=== PATIENT | female | born 1965 | race Caucasian/White ===

== ENCOUNTER 2023-01-31 12:39 | Outpatient (OUT) | payer OTHER, SELFPAY ==
--- NOTE | 2023-01-31 12:48 | MM_ITS ---
Patient: JOSE R YANG Exam Date: 01/31/2023 : 1965 Gender:F Ordering : Non-Staff Physician Admission #: [id number] Family : DR Juno Bowden . Order #: [id number] CLICK HERE TO VIEW EXAM RADIOLOGY REPORT PROCEDURE: MM TOMOSYNTHESIS SCREENING BI COMPARISON: MG MAMM SCREEN 3D MAXIME CAD, 01/31/2022. MG MAMM SCREEN 3D MAXIME CAD, 01/13/2021. INDICATIONS: Screening Calculator Name NCI Breast Cancer Risk Assessment Tool 5 Year Breast Cancer Risk 1.50% Lifetime Breast Cancer Risk 8.30% Personal Breast Cancer No Personal Ovarian Cancer No Treatments None Family Cancers None LOCATION: [facility] BREAST COMPOSITION: Heterogeneously dense,which may obscure small masses. FINDINGS: DIAGNOSTIC CATEGORY 1--NEGATIVE. NO CHANGE FROM COMPARISON ASSESSMENT. Scattered benign-appearing lymph nodes are present. RIGHT BREAST: No significant suspicious finding. LEFT BREAST: No significant suspicious finding. RECOMMENDATIONS: ROUTINE MAMMOGRAM AND CLINICAL EVALUATION IN 12 MONTHS. PLEASE NOTE: A NORMAL MAMMOGRAM DOES NOT EXCLUDE THE POSSIBILITY OF BREAST CANCER. A CLINICALLY SUSPICIOUS PALPABLE LUMP SHOULD BE BIOPSIED. Dictated by: Long Goldsmith MD on 01/31/2023 at 14:57 Approved by: Long Goldsmith MD on 01/31/2023 at 14:59
== END 2023-01-31 12:40 | disposition home or self-care (01) ==
LOC: MAMMO 12:43
PROVIDERS: PCP Family Medicine
DX: Z12.31 Encounter for screening mammogram for malignant neoplasm of breast (principal)
CPT/HCPCS: 77063; 77067

== ENCOUNTER 2024-02-05 07:52 | Outpatient (OUT) | payer OTHER, SELFPAY ==
--- NOTE | 2024-02-05 07:56 | MM_ITS ---
Patient Name: JOSE R YANG MR#: [id number] : 1965 Exam Date: 02/05/2024 Ordering Doctor: Non-Staff Physician RADIOLOGY REPORT PROCEDURE: MM TOMOSYNTHESIS SCREENING BI COMPARISON: MG MAMM SCREEN 3D MAXIME CAD, 01/31/2022. MM TOMOSYNTHESIS SCREENING BI, 01/31/2023. INDICATIONS: Screening Calculator Name NCI Breast Cancer Risk Assessment Tool 5 Year Breast Cancer Risk 1.60% Lifetime Breast Cancer Risk 8.10% Personal Breast Cancer No Personal Ovarian Cancer No Treatments None Family Cancers None LOCATION: [facility] BREAST COMPOSITION: The breasts are heterogeneously dense,which may obscure small masses. FINDINGS: DIAGNOSTIC CATEGORY 1--NEGATIVE. NO CHANGE FROM COMPARISON ASSESSMENT. Scattered benign-appearing calcifications are present. Scattered benign-appearing lymph nodes are present. RIGHT BREAST: No significant suspicious finding. Stable focal asymmetry upper outer quadrant likely normal fibroglandular tissue. LEFT BREAST: No significant suspicious finding. RECOMMENDATIONS: ROUTINE MAMMOGRAM AND CLINICAL EVALUATION IN 12 MONTHS. PLEASE NOTE: A NORMAL MAMMOGRAM DOES NOT EXCLUDE THE POSSIBILITY OF BREAST CANCER. A CLINICALLY SUSPICIOUS PALPABLE LUMP SHOULD BE BIOPSIED. Dictated by: Long Goldsmith MD on 02/05/2024 at 10:54 Approved by: Long Goldsmith MD on 02/05/2024 at 10:56
== END 2024-02-05 07:53 | disposition home or self-care (01) ==
LOC: MAMMO 07:52
PROVIDERS: PCP Family Medicine
DX: Z12.31 Encounter for screening mammogram for malignant neoplasm of breast (principal)
CPT/HCPCS: 77063; 77067

== ENCOUNTER 2024-06-05 14:46 | Outpatient (OUT) | payer OTHER, SELFPAY ==
[2024-06-05 15:08] LABS: Basophils Absolute Auto 0.1 10^3/uL (0.0-0.1); Basophils Percent Auto 0.8 % (0.2-2.0); Eosinophils Absolute Auto 0.2 10^3/uL (0.0-0.7); Eosinophils Percent Auto 2.5 % (0.9-7.0); Hematocrit 41.7 % (36.0-48.0); Hemoglobin 13.3 g/dL (12.0-16.0); Immature Granulocytes Abs Auto 0.03 10^3/uL (0.00-0.03); Immature Granulocytes Pct Auto 0.5 % (0.0-0.5); Lymphocytes Absolute Auto 2.3 10^3/uL (1.2-3.8); Mean Corpuscular HGB Conc 31.9 g/dL (29.9-35.2); Mean Corpuscular Hemoglobin 28.7 pg (26.7-34.0); Mean Corpuscular Volume 90.1 fL (81.0-99.0); Mean Platelet Volume 8.7 fL (9.5-13.5); Monocytes Absolute Auto 0.5 10^3/uL (0.3-0.8); Monocytes Percent Auto 8.6 % (1.7-12.0); Neutrophils Absolute Auto 2.9 10^3/uL (1.4-6.5); Neutrophils Percent Auto 49.6 % (43.0-75.0); Platelet Count 225 10^3/uL (150-450); Red Blood Count 4.63 10^6/uL (4.20-5.40); Red Cell Distribution Width 13.2 % (11.0-15.0); White Blood Count 5.9 10^3/uL (4.0-11.0)
[2024-06-05 15:15] LABS: Estimated Average Glucose 123 mg/dL; Glycohemoglobin A1C 5.9 % (4.5-6.2)
[2024-06-05 15:34] LABS: Alanine Aminotransferase 20 U/L (14-59); Albumin Globulin Ratio 1.1; Albumin Level 3.7 g/dL (3.4-5.0); Alkaline Phosphatase 92 U/L (46-116); Anion Gap 10.7; Aspartate Amino Transferase 18 U/L (15-37); Bilirubin Total 0.5 mg/dL (0.2-1.0); Calcium 8.7 mg/dL (8.5-10.1); Carbon Dioxide 31.1 mmol/L (21.0-32.0); Chloride 105 mmol/L (98-107); Chol HDL Ratio 3.6; Cholesterol 254 mg/dL (<=200); Estimated GFR (African America >60 (>=60 mL/min/1.73m^2); Estimated GFR (Non-African Ame >60 (>=60 mL/min/1.73m^2); Free T3 2.89 pg/mL (2.18-3.98); Globulin 3.3 g/dL; Glucose 97 mg/dL (74-106); HDL Cholesterol 71 mg/dL (40-60); Potassium 3.8 mmol/L (3.5-5.1); Sodium 143 mmol/L (136-145); Thyroid Stimulating Hormone 0.842 uIU/mL (0.358-3.740); Triglycerides 150 mg/dL (<=150)
[2024-06-06 10:11] LABS: Insulin 6.4 uIU/mL (2.6-24.9)
== END 2024-06-05 14:47 | disposition home or self-care (01) ==
LOC: LAB 14:47
PROVIDERS: PCP Family Medicine; Visit Provider Family Medicine
DX: Z00.00 Encounter for general adult medical examination without abnormal findings (principal); E78.5 Hyperlipidemia, unspecified; R53.83 Other fatigue; R73.09 Other abnormal glucose; E03.9 Hypothyroidism, unspecified; I10 Essential (primary) hypertension
CPT/HCPCS: 36415; 80053; 80061; 83036; 83525; 84436; 84443; 84481; 85025; 87150

== ENCOUNTER 2025-02-06 09:23 | Outpatient (OUT) | payer OTHER, SELFPAY ==
--- NOTE | 2025-02-06 09:25 | MM_ITS ---
Patient Name: JOSE R YANG MR#: [id number] : 1965 Exam Date: 02/06/2025 Ordering Doctor: DR. MAGUE RODRÍGUEZ M.D. RADIOLOGY REPORT PROCEDURE: MM TOMOSYNTHESIS SCREENING BI COMPARISON: MM TOMOSYNTHESIS SCREENING BI, 02/05/2024. MM TOMOSYNTHESIS SCREENING BI, 01/31/2023. MG MAMM SCREEN 3D MAXIME CAD, 01/31/2022. MG MAMM MAXIME SCRN W CAD DIG, 07/17/2013. INDICATIONS: Screening Calculator Name NCI Breast Cancer Risk Assessment Tool 5 Year Breast Cancer Risk 1.60% Lifetime Breast Cancer Risk 7.90% Personal Breast Cancer No Personal Ovarian Cancer No Treatments None Family Cancers None LOCATION: [facility] BREAST COMPOSITION: The breasts are heterogeneously dense, which may obscure small masses. RIGHT BREAST: No significant suspicious finding. LEFT BREAST: No significant suspicious finding. FINDINGS: DIAGNOSTIC CATEGORY 1--NEGATIVE. RECOMMENDATIONS: ROUTINE MAMMOGRAM AND CLINICAL EVALUATION IN 12 MONTHS. Dictated by: Amadou Bradley MD on 02/06/2025 at 12:45 Approved by: Amadou Bradley MD on 02/06/2025 at 12:47
--- OUTSIDE RECORDS SUMMARY | 2025-02-06 09:25 | XMS_ITS | Clinical Summary ---
Author Organization [facility] Address [address] [place] [address] Care Team Providers Care Central Office Inspector Name Role Phone Juno Bowdne MD Primary Care Provider [phone] Allergies No known active allergies Medications fluorouracil (Efudex) 5 % creamIndication s:Actinic keratosis Apply to directed areas on the chest, twice a day x 14 days. Dispense 30 day supply but only use for 14 days. 40 g 4 Active Additional Information Patient not taking.Reported on 09/23/2024 lisinopril 20 MG tablet 1 (one) time each day at the same time 5 Active Active Problems No known active problems Encounters Date Type Department Care Team Description 02/06/2025 Travel from Last 3 Months Family History Medical History Relation Name Comments Melanoma Brother Relation Name Status Comments Brother Social History Tobacco Use Types Packs/Day Years Used Date Smoking Tobacco: Never Smokeless Tobacco: Never Tobacco Cessation:Counseling Given: Not Answered Comments Unknown Sex and Gender Information Value Date Recorded Sex Assigned at Female 03/16/2023 8:35 AM EDT Legal Sex Female 7:17 PM EDT Gender Identity Female 03/16/2023 8:35 AM EDT Sexual Orientation Not on file Last Filed Vital Signs Vital Sign Reading Time Taken Comments Blood Pressure - - Pulse - - Temperature - - Respiratory Rate - - Oxygen Saturation - - Inhaled Oxygen Concentration - - Weight - - Height 25.4 cm (10 ) 03/09/2022 12:00 PM EDT Body Mass Index - - Plan of Treatment Upcoming Encounters Date Type Department Care Team (Late st Contact Info) Description 02/12/2025 10:00 AM EDT Office Visit [facility] [address] [place] [address] Nadine Gonzalez MD [address] [place] [address] 09/23/2025 8:35 AM EDT Office Visit [facility] [address] [place] [address] Nadine Gonzalez MD [address] [place] [address] Health Maintenance Due Date Last Done Comments CT Colonography 1965 Colonoscopy 1965 Colorectal Cancer Screening 1965 FIT-DNA 1965 FIT 1965 FOBT 1965 Sigmoidoscopy 1965 HPV/Cotest 01/18/1994 Mammogram 01/31/2023 01/31/2022, 11/07/2017 Influenza Vaccine (#1) 2025 , 03/14/2023, 03/11/2022, Additional history exists Cervical Cancer Screening 09/11/2026 Pap Smear 09/11/2026 09/12/2023 Insurance [employer] Care Teams Central Office Inspector Relationship Specialty Start Date End Date Juno Bowden MD PCP - General 09/22/24
--- OUTSIDE RECORDS SUMMARY | 2025-02-06 09:25 | XMS_ITS | Encounter Summary ---
Author Organization [facility] Address [id number] [address] [place] [address] Care Team Providers Care Waterproofer Name Role Phone Juno Bowden MD Primary Care Provider [phone] Encounter Details Date Type Department Care Team (Late st Contact Info) Description 01/14/2021 Orders Only [facility] [address] [place] [address] [address] [place] [phone] External, Scanning Provider Social History Tobacco Use Types Packs/Day Years Used Date Smoking Tobacco: Never Smokeless Tobacco: Never Alcohol Use Standard Drinks/Week Comments Yes 0 (1 standard drink = 0.6 oz pur e alcohol) occ Childcare Answer Date Recorded Childcare Unknown 10/30/2018 Employment Answer Date Recorded Employment Unknown 10/30/2018 Purpose - Life Answer Date Recorded Purpose and direction in life Unknown Comments No Sex and Gender Information Value Date Recorded Sex Assigned at Female 08/02/2020 4:53 PM EDT Legal Sex Female 6:28 PM EDT Gender Identity Female 08/02/2020 4:53 PM EDT Sexual Orientation Straight 08/02/2020 4: 53 PM EDT documented as of this encounter Plan of Treatment Not on file documented as of this encounter Procedures Procedure Name Priority Date/Time Associated Diagnosis Comments MAMM SCREENING BILATERAL W CAD Routine 01/14/2021 1:00 PM EDT documented in this encounter Results * Mammography screening bilateral with CAD (01/14/2021 1:00 PM EDT) Anatomical Region Laterality Modality Breast Bilateral Mammography Impressions 01/14/2021 1:00 PM EDT CATEGORY 1 - NEGATIVE RECOMMENDATIONS: ROUTINE MAMMOGRAM IN 12 MONTHS us Scanning Provider External IMG MAMMOGRAPHY ORDER DAVID Final Result documented in this encounter Visit Diagnoses Not on filedocumented in this encounter Additional Health Concerns Assessment Noted Time A Body Mass Index follow-up plan has been documented for the patient 07/30/2019 10:52 AM EDT documented as of this encounter Care Teams Waterproofer Relationship Specialty Start Date End Date Juno Bowden MD PCP - General 02/01/13 documented as of this encounter
--- OUTSIDE RECORDS SUMMARY | 2025-02-06 09:25 | XMS_ITS | Encounter Summary ---
Author Organization [facility] Address [id number] [address] [place] [address] Care Team Providers Care Desizing Pad Operator Name Role Phone Juno Bowden MD Primary Care Provider [phone] Encounter Details Date Type Department Care Team (Late st Contact Info) Description 02/03/2022 Orders Only [facility] [address] [place] [phone] Luis Rick MD [address] [place], [place] [id number] Screening mammogram, encounter for Social History Tobacco Use Types Packs/Day Years [...] Comments MAMM SCREENING BILATERAL W CAD Routine 01/31/2022 8:20 AM EDT Screening mammogram, encounter for documented in this encounter Results * Mammography screening bilateral with CAD (01/31/2022 8:20 AM EDT) Anatomical Region Laterality Modality Breast Bilateral Mammography Impressions 01/31/2022 8:20 AM EDT Bilateral mammogram screening us Luis Rick MD IMG MAMMOGRAPHY ORDERABLES Iliana dowling Result documented in this encounter Visit Diagnoses Diagnosis Screening mammogram, encounter for documented in this encounter Additional Health Concerns Assessment Noted Time A Body Mass Index follow-up plan has been documented for the patient 07/30/2019 10:52 AM EDT documented as of this encounter Care Teams Desizing Pad Operator Relationship Specialty Start Date End Date Juno Bowden MD PCP - General 02/01/13 documented as of this encounter
--- OUTSIDE RECORDS SUMMARY | 2025-02-06 09:25 | XMS_ITS | Encounter Summary ---
Author Organization [facility] Address [id number] [address] [place] [address] Care Team Providers Care Pick Up Driver Name Role Phone Juno Bowden MD Primary Care Provider [phone] Encounter Details Date Type Department Care Team (Late st Contact Info) Description 01/13/2021 Orders Only [facility] [address] [place] [address] [address] [place] [phone] External, Scanning Provider Social History Tobacco Use [...] as of this encounter Plan of Treatment Pending Results Name Type Priority Associated Diagnoses Date /Time Mammography screening bilateral with CAD Imaging Routine 01/13/2021 3: 52 PM EDT documented as of this encounter Visit Diagnoses Not on filedocumented in this encounter Additional Health Concerns Assessment Noted Time A Body Mass Index follow-up plan has been documented for the patient 07/30/2019 10:52 AM EDT documented as of this encounter Care Teams Pick Up Driver Relationship Specialty Start Date End Date Juno Bowden MD PCP - General 02/01/13 documented as of this encounter
--- OUTSIDE RECORDS SUMMARY | 2025-02-06 09:25 | XMS_ITS | Encounter Summary ---
Author Organization [facility] Address [address] [place] [address] Care Team Providers Care Bevel Polisher Name Role Phone Juno Bowden MD Primary Care Provider [phone] Encounter Details Date Type Department Care Team (Latest Contact Info) Description 02/06/2025 Travel Social History Tobacco Use Types Packs/Day Years Used Date Smoking Tobacco: Never Smokeless Tobacco: Never Comments Unknown Sex and Gender Information Value Date Recorded Sex Assigned at Female 03/16/2023 8:35 AM EDT Legal Sex Female 7:17 PM EDT Gender Identity Female 03/16/2023 8:35 AM EDT Sexual Orientation Not on file documented as of this encounter Plan of Treatment Upcoming Encounters Date Type Department Care Team (Late st Contact Info) Description 02/12/2025 10:00 AM EDT Office [facility] [address] [place] [address] Nadine Gonzalez MD [address] [place] [address] 09/23/2025 8:35 AM EDT Office Visit [facility] [address] [place] [address] Nadine Gonzalez MD [address] [place] [address] documented as of this encounter Visit Diagnoses Not on filedocumented in this encounter Care Teams Bevel Polisher Relationship Specialty Start Date End Date Juno Bowden MD PCP - General 09/22/24 documented as of this encounter
--- OUTSIDE RECORDS SUMMARY | 2025-02-06 09:27 | XMS_ITS | CCD ---
Author Organization [facility] Care Team Providers Care Guillotine Operator Name Role Phone STEPHANIA, DOCTOR Admitting Unavailable STEPHANIA, DR ALCALA Consulting Unavailable STEPHANIA, DR ALCALA Attending Unavailable SONAL, DR ARANA Primary Care Unavailable SONAL, DR ARANA Referring Unavailable YASMANI, DR JUAN To Consulting Unavailable Unavailable Primary Care Provider Unavailabl e Sumit Bowden MD Primary Care Provider [phone] Sumit Bowden MD Primary Care Provider [phone] Sumit Bowden MD Primary Care Provider [phone] LUIS RODRÍGUEZ Attending Unavailable SUMIT BOWDEN Referring Unavailable SUMIT BOWDEN Primary Care Unavailable NADINE ROGEL Attending Unavailable NADINE ROGEL Attending Unavailable Medications Current Medications Medication Drug Class(es) Dates Sig (Normalized) Sig (Original) fluorouracil 50 mg/ml topical cream (6 sources) Nucleoside Metabolic Inhibitor Start: 09-21-2023 fluorouracil (Efudex) 5 % cream Indications: Actinic keratosis Apply to directed areas on the chest, twice a day x 14 days. Dispense 30 day supply but only use for 14 days. 40 g 09/21/2023 Active lisinopril 20 mg oral tablet (5 sources) Angiotensin Converting Enzyme Inhibitor Start: 06-17-2024 End: 09-23-2024 lisinopril 20 MG tablet 1 (one) time each day at the same time 06/18/2024 Active Problems Active Problems Problem Classification Problem Date Documented Da te Episodic/Chronic Other and unspecified benign neoplasm (2 sources) Skin lesion; Translations: [Hemangioma of skin and subcutaneous tissue] 09-23-2024 Episodic Other non-epithelial cancer of skin (4 sources) History of squamous cell carcinoma of skin; Translations: [Personal history of other malignant neoplasm of skin] 03-25-2024 Episodic Other screening for suspected conditions (not mental disorders or infectious disease) (8 sources) Encounter for screening mammogram for malignant neoplasm of breast; Translations: [Patient encounter status] Onset: 01-31-2022 Episodic Other skin disorders (4 sources) Seborrheic keratosis; Translations: [Other seborrheic keratosis] 03-25-2024 Episodic Other skin disorders (4 sources) Lentiginosis; Translations: [Other melanin hyperpigmentation] 03-25-2024 Episodic Other skin disorders (2 sources) Actinic keratosis; Translations: [Actinic keratosis] 03-25-2024 Episodic Unclassified (1 source) Gynecologic Exam Onset: 09-19-2024 Past or Other Problems Problem Classification Problem Date Documented Da te Episodic/Chronic Unclassified (2 sources) Onset: 07-30-2019 Resolved: 09-19-2024 07-30-2019 Results Test Name Value Interpretation Reference Range Facil ity No Panel Informationon 03-25 [facility] MAMM SCREEN 3D MAXIME CADon 01-31-2022 MG MAMM SCREEN 3D MAXIME CAD Patient: JOSE R YANG Exam Date: 01/31/2022 : 1965 Gender:F Ordering : DR DOCTOR MATA Admission #: [id number] Family : DR SUMIT BOWDEN . Order #: [id number] CLICK HERE TO VIEW EXAM RADIOLOGY REPORT PROCEDURE: MAMMOGRAM SCREENING 3D BILATERAL CAD COMPARISON: MG MAMM SCREEN 3D MAXIME CAD, 01/13/2021. MG MAMM SCREEN MAXIME W CAD, 12/03/2018. INDICATIONS: Screening mammography Calculator Name NCI Breast Cancer Risk Assessment Tool 5 Year Breast Cancer Risk 1.50% Lifetime Breast Cancer Risk 8.50% Personal Breast Cancer No Personal Ovarian Cancer No Treatments None Family Cancers None LOCATION: [facility] BREAST COMPOSITION: Heterogeneously dense,which may obscure small masses. FINDINGS: DIAGNOSTIC CATEGORY 1--NEGATIVE. RIGHT BREAST: No significant suspicious finding. No significant change has occurred. LEFT BREAST: No significant suspicious finding. No significant change has occurred. RECOMMENDATIONS: ROUTINE MAMMOGRAM AND CLINICAL EVALUATION IN 12 MONTHS. PLEASE NOTE: A NORMAL MAMMOGRAM DOES NOT EXCLUDE THE POSSIBILITY OF BREAST CANCER. A CLINICALLY SUSPICIOUS PALPABLE LUMP SHOULD BE BIOPSIED. Dictated by: Juan Burton M.D. on 01/31/2022 at 15:52 Approved by: Juan Burton M.D. on 01/31/2022 at 15:56 Normal [facility] Vital Signs Date Time Vital Sign Value Performing Clinician Carey werner 09-19-2024 09:00-0400 Body height 175.3 cm Luis Rodríguez MD Work Phone: [facility] 09-19-2024 09:00-0400 Body mass index (BMI) [Ratio] 31.01 kg/m2 Luis Rodríguez MD Work Phone: [facility] 09-19-2024 09:00-0400 Body weight 95.25 kg Luis Rodríguez MD Work Phone: [facility] 09-19-2024 09:00-0400 Diastolic blood pressure 82 mm[Hg] Luis Rodríguez MD Work Phone: [facility] 09-19-2024 09:00-0400 Systolic blood pressure 144 mm[Hg] Luis Rodríguez MD Work Phone: [facility] 09-12-2023 11:45-0400 Body height 175.3 cm Luis Rodríguez MD Work Phone: [facility] 09-12-2023 11:45-0400 Body mass index (BMI) [Ratio] 29.39 kg/m2 Luis Rodríguez MD Work Phone: [facility] 09-12-2023 11:45-0400 Body weight 90.27 kg Luis Rodríguez MD Work Phone: [facility] 09-12-2023 11:45-0400 Diastolic blood pressure 85 mm[Hg] Luis Rodríguez MD Work Phone: [facility] 09-12-2023 11:45-0400 Systolic blood pressure 143 mm[Hg] Luis Rodríguez MD Work Phone: [facility] Encounters Encounter Date Encounter Type Care Provider Facility Start: 09-23-2024 End: 09-23-2024 Katharine Rogel MD Work Phone: [facility] Start: 09-23-2024 End: 09-23-2024 Katharine Rogel MD Work Phone: [facility] Start: 09-23-2024 End: 09-23-2024 Office outpatient visit 15 minutes Nadine Rogel MD Work Phone: [facility] Comment on above: Seborrheic keratosis (Primary Dx); Lentigines; Angioma of skin; History of SCC (squamous cell carcinoma) of skin Start: 09-23-2024 End: 09-23-2024 ambulatory NADINE ROGEL Not Available Start: 09-19-2024 End: 09-19-2024 Patient encounter procedure Luis Rodríguez MD Work Phone: [facility] Start: 09-19-2024 End: 09-19-2024 Periodic preventive med est patient 40-64yrs Luis Rodríguez MD Work Phone: [facility]stetrics/Gynecology Comment on above: Women's annual routi ne gynecological examination (Primary Dx); Screening mammogram, encounter for Start: 09-19-2024 End: 09-19-2024 ambulatory [facility] Start: 09-19-2024 Encounter for gynecological examination (general) (routine) without abnormal findings [facility] Start: 06-11-2024 ambulatory Facility:[facility] Start: 03-25-2024 End: 03-25-2024 Katharine Rogel MD Work Phone: [facility] Start: 03-25-2024 End: 03-25-2024 Katharine Rogel MD Work Phone: [facility] Start: 03-25-2024 End: 03-25-2024 Office outpatient visit 15 minutes Nadine Rogel MD Work Phone: [facility] Comment on above: Seborrheic keratosis (Primary Dx); History of SCC (squamous cell carcinoma) of skin; Lentigines; Actinic keratosis Start: 03-25-2024 End: 03-25-2024 ambulatory NADINE ROGEL Not Available Start: 09-12-2023 End: 09-12-2023 Patient encounter procedure Luis Rodríguez MD Work Phone: [facility] Start: 09-12-2023 End: 09-12-2023 Periodic preventive med est patient 40-64yrs Luis Rodríguez MD Work Phone: [facility] Obstetric[facility]/Gynecology Comment on above: Women's annual routi ne gynecological examination (Primary Dx); Screening mammogram, encounter for; Cervical cancer screening Start: 01-31-2022 End: 02-01-[address] DOCTOR MATA Facility: Procedures Date Procedure Procedure Detail Performing Clinician Start: 03-25-2024 CRYOTHERAPY SKIN LESION Nadine Rogel MD Work Phone: Start: 09-12-2023 Microscopic observat ion [Identifier] in Cervix by Cyto stain Luis Rodríguez MD Work Phone: Start: 01-31-2022 Mammography Nadine ceballos MD Work Phone: Start: 08-04-2020 Microscopic observat ion [Identifier] in Cervix by Cyto stain Luis Rodríguez MD Work Phone: Plan of Treatment Date Care Activity Detail Author Start: 09-11-2026 Screening for malign ant neoplasm of cervix Pap Smear [facility] Start: 09-23-2025 End: 09-23-2025 Patient encounter procedure 09/23/2025 8:35 AM EDT Office Visit [facility] [address] [place] [address] Nadine Rogel MD [address] [place] [address] [facility] Start: 09-19-2025 Adult BMI Follow Up Plan Adult BMI Follow Up Plan [facility] Start: 09-19-2025 Adult BMI Screening Adult BMI Screen ing [facility] Start: 09-19-2025 Tobacco Screening Tobacco Screening [facility] Start: 01-20-2025 Influenza vaccination Influenza Vacc ine [facility] Start: 09-23-2024 End: 09-23-2024 Patient encounter procedure [facility] Comment on above: Arrived Start: 09-11-2024 Adult BMI Screening Adult BMI Screen ing [facility] Start: 09-11-2024 Tobacco Screening Tobacco Screening [facility] Start: 03-25-2024 End: 03-25-2024 Patient encounter procedure 03/25/2024 10:35 AM EST Office Visit [facility] [address] [place] [id number] Nadine Rogel MD [address] [place] [address] Arrived [facility] Comment on above: Arrived Start: 01-21-2024 COVID-19 Vaccine ( season) COVID-19 Vaccine ( season) [facility] Start: 01-21-2024 Influenza vaccination [facility] Start: 08-05-2023 Screening for malign ant neoplasm of cervix Pap Smear [facility] Start: 01-31-2023 Screening for malign ant neoplasm of breast Mammogram [facility] Start: 01-20-2023 COVID-19 Vaccine ( season) COVID-19 Vaccine ( season) [facility] Start: 01-18-2014 Administration of varicella zoster vaccine Zoster (Shingles) Vaccine (1 of 2) [facility] Start: 01-18-1994 Screening for malign ant neoplasm of cervix [facility] Start: 01-18-1985 Screening for malign ant neoplasm of cervix Pap Smear [facility] Start: 01-18-1983 DTaP,Tdap and Td Vac cines (1 - Tdap) DTaP,Tdap and Td Vaccines (1 - Tdap) [facility] Start: 01-18-1982 Adult BMI Follow Up Plan Adult BMI Follow Up Plan [facility] Start: 1976 Depression Screening Depression Scre ening [facility] Start: 1965 Screening for malign ant neoplasm of colon [facility] End: 09-06-2024 Cytopathology procedure, preparation of smear, genital source Pap Smear Pathology and Cytology Routine Cervical cancer screening 1 Occurrences starting 09/12/2023 until 09/06/2024 [facility] Phone: Comment on above: 1 Occurrences starti ng 09/12/2023 until 09/06/2024 End: 11-04-2024 DBT Breast - bilateral screening Mammography screening bilateral with CAD Imaging Routine Screening mammogram, encounter for 1 Occurrences starting 09/12/2023 until 11/04/2024 [facility] Comment on above: 1 Occurrences starti ng 09/12/2023 until 11/04/2024 End: 11-10-2025 DBT Breast - bilateral screening Mammography screening bilateral with CAD Imaging Routine Screening mammogram, encounter for 1 Occurrences starting 09/19/2024 until 11/10/2025 [employer] Work Phone: Comment on above: 1 Occurrences starti ng 09/19/2024 until 11/10/2025 Immunizations Immunization Date Immunization Notes Care Provider [facility] 01-31-2024 influenza virus vaccine, unspecified formulation Nadine Rogel MD Work Phone: [facility] 03-14-2023 influenza virus vaccine, unspecified formulation Luis Rodríguez MD Work Phone: [facility] Payers Date Payer Category Payer Private Health Insurance [employer] [id number] 2020 Commercial Managed C are - PPO [employer] Member Subscriber Plan / Payer (Effective 2020-Present) Name: Jose R Yang Relation to Subscriber: Spouse Name: ELVIS YANG Date of : 1961 Address: [address] [place] [address] [place] [address] Payer ID: Not on file Type: Not on file Address: [address] [place] [id number] 2020 Unknown [employer] M ANNA DURAN [id number] 2020-Present [phone] [address] [place] [address] [id number] 1965 Unknown [id number] 1965 Unknown [id number] 1965 Unknown [id number] 1965 Unknown [id number] 1960 Unknown [id number] Social History Date Type Detail Facility Start: 08-17-2022 End: 03-23-2023 Tobacco smoking status NHIS Never smoked tobacco [facility] Start: 08-17-2022 End: 03-23-2023 Tobacco use and exposure Smokeless tobacco non-user [facility] Start: 09-21-2023 End: 09-23-2024 History of Social function [facility] Start: 09-21-2023 End: 09-23-2024 Tobacco use panel [facility] Start: 1965 Sex assigned at Female [facility] Start: 08-02-2020 Gender identity Identifies as female gender (finding) [facility] Start: 09-12-2023 End: 09-19-2024 Alcoholic beverage intake Current drinker of alcohol (finding) [facility] Childcare Unknown [facility] Start: 04-27-2017 Alcohol Comment occ [facility] Start: 08-02-2020 Sexual orientation Heterosexual (finding) [facility] Start: 12-23-2014 Sex Female (finding) [facility] History of Present illness Narrative 09-23-2024 Nadine Rogle MD - 09/23/2024 8:30 AM EDT Note Date & Type Note Facility 09-23-2024 History of Presen t illness Narrative Skin Check Location: Patient requests a full body skin examination Dermatologic history: history of Actinic Keratosis, history of Squamous Cell Carcinoma, family history of melanoma Last visit: 6 months ago Established patient All pertinent medical history, medications, and allergies were reviewed. General Exam: alert, oriented to person, place, and time, normal affect, well appearing Unaccompanied Scalp, Examined Right leg Examined Head, Face Examined , patient wearing make-up during exam Left leg Examined Neck Examined Right foot Examined Chest Examined , Patient kept bra on. Left foot Examined Back Examined Buttocks Examined Abdomen Examined Digits,nails: Examined Right arm Examined Patient wearing nail spanish, Denies dark streaks on toenails Left arm Examined Lymphatics: Not examined Hands Examined Skin Exam 1. SEBORRHEIC KERATOSIS Generalized Stuck on verrucous, weber-brown papules and plaques. Patient was counseled regarding these benign growths. Removal is normally not necessary, but they may be removed if they are symptomatic or for cosmetic reasons. 2. LENTIGINES Generalized Scattered weber macules in sun-exposed areas. The patient was informed that lentigines are benign pigmented lesions that occur on sun-exposed and sun-damaged skin. No treatment is necessary. Recommended regular use of broad spectrum sunscreen SPF 30 or higher 3. ANGIOMA OF SKIN Trunk Scattered valverde-red papule(s). The patient was informed that angiomas are benign growths on the the skin. No treatment is necessary. 4. HISTORY OF SCC (SQUAMOUS CELL CARCINOMA) OF SKIN (2) Left Dorsal Hand, Right Lateral Leg No evidence of recurrence at SCC scar. The patient was counseled that scars from excisional sites of nonmelanoma skin cancers should be monitored closely for recurrence. The patient was instructed to contact the office for any new, changing, or symptomatic moles. The patient was also instructed to contact the office for any new lesions that develop within or around the previous surgery scar. Next Visit: 1 year skin exam documented in this encounter [facility] History of Present illness Narrative 09-19-2024 Luis Rodríguez MD - 09/19/2024 9:00 AM EDT Note Date & Type Note Facility 09-19-2024 History of Present illness Narrative ANNUAL FITNESS TECHNICIAN EXAM Chief Complaint Patient presents with Gynecologic Exam Patient here for annual denies any concerns. Jose R Yang is a 59 y.o. female who presents for annual education professor exam. No gynecologic complaints. Patient's last menstrual period was 04/21/2014 (exact date). Periods are absent. Current contraception is not needed Pertinent pap history: Pap negative last year OB History Para Term AB Living 0 0 0 0 0 0 SAB IAB Ectopic Multiple Live Births 0 0 0 0 0 The following portions of the patient's history were reviewed and updated as appropriate: allergies, current medications, past family history, past medical history, past social history, past surgical history and problem list. Review of Systems Review of Systems Constitutional: Negative for activity change and appetite change. HENT: Negative for congestion and nosebleeds. Eyes: Negative for redness and visual disturbance. Respiratory: Negative for chest tightness, shortness of breath and wheezing. Cardiovascular: Negative for chest pain and palpitations. Gastrointestinal: Negative for abdominal pain, diarrhea, nausea and vomiting. Genitourinary: Negative for dysuria, genital sores and urgency. Musculoskeletal: Negative for back pain and neck pain. Skin: Negative for color change and rash. Neurological: Negative for facial asymmetry, speech difficulty and weakness. Hematological: Negative for adenopathy. Does not bruise/bleed easily. Psychiatric/Behavioral: Negative for agitation and confusion. PHYSICAL EXAM BP 144/82 Ht 175.3 cm (5' 9 ) Wt 95.3 kg (210 lb) LMP 04/21/2014 (Exact Date) BMI 31.01 kg/m Physical Exam Constitutional: Appearance: She is well-developed. HENT: Head: Normocephalic and atraumatic. Neck: Thyroid: No thyromegaly. Cardiovascular: Rate and Rhythm: Normal rate and regular rhythm. Heart sounds: No murmur heard. Pulmonary: Effort: Pulmonary effort is normal. Breath sounds: Normal breath sounds. Chest: Breasts: Right: No mass, nipple discharge or skin change. Left: No mass, nipple discharge or skin change. Abdominal: General: There is no distension. Palpations: Abdomen is soft. There is no mass. Tenderness: There is no abdominal tenderness. There is no guarding or rebound. Genitourinary: Labia: Right: No lesion. Left: No lesion. Vagina: Normal. Cervix: No cervical motion tenderness. Uterus: Not enlarged and not tender. Adnexa: Right: No mass, tenderness or fullness. Left: No mass, tenderness or fullness. Musculoskeletal: General: No tenderness. Cervical back: Neck supple. Lymphadenopathy: Cervical: No cervical adenopathy. Upper Body: Right upper body: No supraclavicular adenopathy. Left upper body: No supraclavicular adenopathy. Skin: General: Skin is warm and dry. Findings: No rash. Neurological: Mental Status: She is alert and oriented to person, place, and time. Psychiatric: Behavior: Behavior normal. Assessment Problem List Items Addressed This Visit None Visit Diagnoses Women's annual routine gynecological examination - Primary Screening mammogram, encounter for Relevant Orders Mammography screening bilateral with CAD Plan Return for Annual Head Cashier Visit. Yearly pelvic exam. Pap with Co testing every 3-5 yrs. Yearly mammogram. Due in January. Counseling mammography screening and prescribed diet education This note was created with the assistance of a speech recognition program. While intending to generate a timely document that accurately reflects the content of the visit, no guarantee can be provided that every grammatical or spelling mistake has been or will be identified or corrected. documented in this encounter [facility] Instructions 09-19-2024 Patient Instructions Note Date & Type Note Facility 09-19-2024 Instructions Yoli Hurtado RN - 09/19/2024 9:00 AM EDT Some Eating Tips That Can Help You Lose Weight Eat only at the table. Avoid eating while watching TV or doing other activities. Eat only when you are hungry - not out of boredom or when you feel bad. Do not skip meals. This will prevent you from overeating at the next meal. Keep plenty of low-calorie snacks available. Fruits and vegetables are good choices. Bring your lunch to school or work. Drink ice water with meals. This helps decrease the appetite. Eat low-fat, low-salt, and low-sugar foods. Avoid fatty foods like fried foods, prepared meats, and fast foods. Eat foods that are high in bulk, such as vegetables, whole grain breads, and cereals. Eat foods with complex sugars such as rice, beans, pasta. Eat slowly. Put your spoon down between bites. You will feel full sooner. Allow yourself an occasional treat. documented in this encounter [facility] History of Present illness Narrative 03-25-2024 Nadine Rogel MD - 03/25/2024 10:35 AM EST Note Date & Type Note Facility 03-25-2024 History of Presen t illness Narrative Skin Check Location: Patient requests a full body skin examination Dermatologic history: history of Actinic Keratosis, history of Squamous Cell Carcinoma Last visit: 6 months ago Used Efudex cream bid x 14 days to chest in December- had moderate response Established patient All pertinent medical history, medications, and allergies were reviewed. General Exam: alert, oriented to person, place, and time, normal affect, well appearing Unaccompanied Scalp, Examined , exam limited by hair Right leg Examined Head, Face Examined Left leg Examined Neck Examined Right foot Examined Chest Examined Left foot Examined Back Examined Buttocks Examined Abdomen Examined Digits,nails: Examined Right arm Examined Left arm Examined Lymphatics: Not examined Hands Examined 1. Seborrheic keratosis Stuck on verrucous, weber-brown papules and plaques. Patient was counseled regarding these benign growths. Removal is normally not necessary, but they may be removed if they are symptomatic or for cosmetic reasons. 2. History of SCC (squamous cell carcinoma) of skin (2) Left Dorsal Hand, Right Lateral Leg No evidence of recurrence at SCC scar. The patient was counseled that scars from excisional sites of nonmelanoma skin cancers should be monitored closely for recurrence. The patient was instructed to contact the office for any new, changing, or symptomatic moles. The patient was also instructed to contact the office for any new lesions that develop within or around the previous surgery scar. 3. Lentigines Scattered weber macules in sun-exposed areas. The patient was informed that lentigines are benign pigmented lesions that occur on sun-exposed and sun-damaged skin. No treatment is necessary. Recommended regular use of broad spectrum sunscreen SPF 30 or higher 4. Actinic keratosis Right Lower Leg - Posterior Erythematous scaly papules Patient was counseled regarding these sun-induced growths that can develop into squamous cell carcinoma if left untreated. Discussed treatment with cryotherapy. It was emphasized that any treated lesions that fail to resolve should be re-evaluated. Cryotherapy performed today; see procedure note Diagnosis: Actinic keratosis Indication: Precancerous Location: see skin exam Consent: Verbal consent was obtained and risks were discussed, including, but not limited to risks of scarring, darker or clearance cutter pigmentary changes, recurrence, incomplete removal and infection. Method: Liquid nitrogen was used to treat the lesion(s) with two 5-10 second freeze-thaw cycles. Number of lesions treated: 1 Post-procedure instructions: Instructions were given orally and in writing. The office will be contacted if the lesion fails to resolve despite treatment, or if a side effect develops such as abnormal crusting, scabbing, redness or tenderness. Discussed Efudex cream as spot treatment to right lower posterior leg if any remaining lesion after cryotherapy. Follow up if lesion fails to resolve. Cryotherapy, skin lesion - Right Lower Leg - Posterior Related Medications fluorouracil (Efudex) 5 % cream Apply to directed areas on the chest, twice a day x 14 days. Dispense 30 day supply but only use for 14 days. Next Visit: 6 months documented in this encounter [facility] History of Present illness Narrative 09-12-2023 Luis Rodríguez MD - 09/12/2023 11:30 AM EDT Note Date & Type Note Facility 09-12-2023 History of Present illness Narrative ANNUAL FITNESS TECHNICIAN EXAM Chief Complaint Patient presents with Gynecologic Exam Patient here for annual, denies any concerns. Jose R Yang is a 58 y.o. female who presents for annual education professor exam. Doing well. No education professor complaints. Would like to lose weight. Did have a mammogram in and got a normal letter. Patient's last menstrual period was 04/21/2014 (exact date). Periods are absent. Current contraception is not needed Pertinent pap history: Pap with cotesting today OB History Para Term AB Living 0 0 0 0 0 0 SAB IAB Ectopic Multiple Live Births 0 0 0 0 0 The following portions of the patient's history were reviewed and updated as appropriate: allergies, current medications, past family history, past medical history, past social history, past surgical history and problem list. Review of Systems Review of Systems Constitutional: Negative for activity change and appetite change. HENT: Negative for congestion and nosebleeds. Eyes: Negative for redness and visual disturbance. Respiratory: Negative for chest tightness, shortness of breath and wheezing. Cardiovascular: Negative for chest pain and palpitations. Gastrointestinal: Negative for abdominal pain, diarrhea, nausea and vomiting. Genitourinary: Negative for dysuria, genital sores and urgency. Musculoskeletal: Negative for back pain and neck pain. Skin: Negative for color change and rash. Neurological: Negative for facial asymmetry, speech difficulty and weakness. Hematological: Negative for adenopathy. Does not bruise/bleed easily. Psychiatric/Behavioral: Negative for agitation and confusion. PHYSICAL EXAM BP 143/85 Ht 175.3 cm (5' 9 ) Wt 90.3 kg (199 lb) LMP 04/21/2014 (Exact Date) BMI 29.39 kg/m Physical Exam Constitutional: Appearance: She is well-developed. HENT: Head: Normocephalic and atraumatic. Neck: Thyroid: No thyromegaly. Cardiovascular: Rate and Rhythm: Normal rate and regular rhythm. Heart sounds: No murmur heard. Pulmonary: Effort: Pulmonary effort is normal. Breath sounds: Normal breath sounds. Chest: Breasts: Right: No mass, nipple discharge or skin change. Left: No mass, nipple discharge or skin change. Abdominal: General: There is no distension. Palpations: Abdomen is soft. There is no mass. Tenderness: There is no abdominal tenderness. There is no guarding or rebound. Genitourinary: Labia: Right: No lesion. Left: No lesion. Vagina: Normal. Cervix: No cervical motion tenderness. Uterus: Not enlarged and not tender. Adnexa: Right: No mass, tenderness or fullness. Left: No mass, tenderness or fullness. Musculoskeletal: General: No tenderness. Cervical back: Neck supple. Lymphadenopathy: Cervical: No cervical adenopathy. Upper Body: Right upper body: No supraclavicular adenopathy. Left upper body: No supraclavicular adenopathy. Skin: General: Skin is warm and dry. Findings: No rash. Neurological: Mental Status: She is alert and oriented to person, place, and time. Psychiatric: Behavior: Behavior normal. Assessment Problem List Items Addressed This Visit None Visit Diagnoses Women's annual routine gynecological examination - Primary Screening mammogram, encounter for Relevant Orders Mammography screening bilateral with CAD Cervical cancer screening Relevant Orders Pap Smear Plan Return for Annual Head Cashier Visit. Yearly pelvic exam. Pap with Co testing. Yearly mammogram. Up to date with colon screening. Counseling mammography screening This note was created with the assistance of a speech recognition program. While intending to generate a timely document that accurately reflects the content of the visit, no guarantee can be provided that every grammatical or spelling mistake has been or will be identified or corrected. documented in this encounter [facility] Evaluation note Note Date & Type Note Facility Evaluation note Diagnosis Seborrheic keratosis- Primary History of SCC (squamous cell carcinoma) of skin Personal history of other malignant neoplasm of skin Lentigines Actinic keratosis documented in this encounter [facility] Evaluation note Note Date & Type Note Facility Evaluation note Diagnosis Women's annual routine gynecological examination- Primary Screening mammogram, encounter for Cervical cancer screening Screening for malignant neoplasm of the cervix documented in this encounter [facility] Evaluation note Note Date & Type Note Facility Evaluation note Diagnosis Women's annual routine gynecological examination- Primary Screening mammogram, encounter for documented in this encounter [facility] Evaluation note Note Date & Type Note Facility Evaluation note Diagnosis Seborrheic keratosis- Primary Lentigines Angioma of skin History of SCC (squamous cell carcinoma) of skin Personal history of other malignant neoplasm of skin documented in this encounter [facility] Instructions Note Date & Type Note Facility Instructions Not on filedocumented in this en counter [facility] Summary Purpose Family History No Family History Records FoundNo Family History Records FoundNo Family History Records FoundNo Family History Records Found Advance Directives No Advanced Directives Records FoundHealthcare Agents on File Name Relationship Healthcare Agent Relationshi p Communication Manjinder Yang Spouse Health Care Agent Healthcare Agents on File Name Relationship Healthcare Agent Relationshi p Communication Manjinder Yang Spouse Health Care Agent Additional Source Comments INFORMATION SOURCE (unrecogn ized section and content) DATE CREATED AUTHOR 02/19/2022 [facility] DATE CREATED AUTHOR AUTHOR'S ORGANIZ ATION 06/13/2024 [facility] DATE CREATED AUTHOR AUTHOR'S ORGANIZ ATION 09/24/2024 [facility] DATE CREATED AUTHOR AUTHOR'S ORGANIZ ATION 09/26/2024 [facility] dical Specialists EPIC Reason for Visit (unrecogniz ed section and content) Reason Comments Skin Check Reason Comments Gynecologic Exam Patient here for beth ual, denies any concerns. Reason Comments Gynecologic Exam Patient here for beth ual denies any concerns. Care Teams (unrecognized sec tion and content) Guillotine Operator Relationship Specialty Start Date End Date Sumit Bowden MD [address] [place] [address] PCP - General 02/01/13 Guillotine Operator Relationship Specialty Start Date End Date Sumit Bowden MD PCP - General 02/01/13 Guillotine Operator Relationship Specialty Start Date End Date Sumit Bowden MD [address] [place] [address] PCP - General 09/22/24 Guillotine Operator Relationship Specialty Start Date End Date Sumit Bowden MD [address] [place] [phone] PCP - General 09/22/24 FOR RECORDS PERTAINING TO PATIENTS WHO ARE OR HAVE BEEN ENROLLED IN A CHEMICAL DEPENDENCY/SUBSTANCEABUSE PROGRAM, SOME INFORMATION MAY BE OMITTED. This clinical summary was aggregated from multiple sources. Caution should be exercised in using it in the provision of clinical care. This summary normalizes information from multiple sources, and as a consequence, information in this document may materially change the coding, format and clinical context of patient data. In addition, data may be omitted in some cases. CLINICAL DECISIONS SHOULD BE BASED ON THE PRIMARY CLINICAL RECORDS. [employer] [facility]. provides no warranty or guarantee of the accuracy or completeness of information in this document.
== END 2025-02-06 09:24 | disposition home or self-care (01) ==
LOC: MAMMO 09:23
PROVIDERS: PCP Family Medicine
DX: Z12.31 Encounter for screening mammogram for malignant neoplasm of breast (principal)
CPT/HCPCS: 77063; 77067

== ENCOUNTER 2025-05-12 11:39 | Outpatient (OUT) | payer OTHER, SELFPAY ==
--- OUTSIDE RECORDS SUMMARY | 2025-04-29 13:00 | XMS_ITS | Encounter Summary ---
Author Organization [facility] Address [address] [place] [address] Care Team Providers Care Certified Novell Administrator Name Role Phone Juno Bowden MD Primary Care Provider [phone] Reason for Visit * ReasonCommentsMohs Micrographic Surgery Encounter Details DateTypeDepartmentCare Team (Latest Contact Info)Xeqeodvbgvu33/09/2025 1:00 PM ESTOffice Visit [facility] [address] [place] [phone] Asha Mosher MD [address] [place] [address] Squamous cell carcinoma of skin of left lower limb, including hip Social History Tobacco UseTypesPacks/DayYears UsedDateSmoking Tobacco: NeverSmokeless Tobacco: NeverCommentsUnknownSex and Gender InformationValueDate RecordedSex Assigned at ImovgOypsje53/26/2023 8:35 AM EDTLegal XztLvsjnu01/15/2023 7:17 PM EDTGender CvzidqfbVnxkxq95/26/2023 8:35 AM EDTSexual OrientationNot on file documented as of this encounter Last Filed Vital Signs Vital SignReadingTime TakenCommentsBlood Lpfxqhan769/6104/29/2025 2:26 PM EST Pulse--Temperature--Respiratory Rate--Oxygen Saturation--Inhaled Oxygen Concentration--Weight--Height--Body Mass Index--documented in this encounter Progress Notes * Asha Mosher MD - 04/29/2025 1:00 PM EST Images from the original note were not included. Mohs Surgery Location: Left lower leg- anterior Date of biopsy: 02/12/2025 Diagnosis: Squamous Cell Carcinoma All pertinent medical history, medications, and allergies were reviewed. General Exam: alert, oriented to person, place, and time, normal affect, well appearing Unaccompanied A focused exam completed based on patient reported problems, see below: Skin Exam 1. SQUAMOUS CELL CARCINOMA OF SKIN OF LEFT LOWER LIMB, INCLUDING HIP Left Lower Leg - Anterior Erythematous macule at biopsy site. 1.5 x 1.0 cm - Mohs surgery Consent obtained: written Wesley Protocol: Procedure explained and questions answered to patient or proxy's satisfaction: Yes Test results available and properly labeled: Yes Pathology report reviewed: Yes External notes reviewed: Yes Photo or diagram used for site identification: Yes Site/side marked: Yes Slide independently reviewed by Mohs surgeon: Yes Anticoagulation: Is the patient taking prescription anticoagulant and/or aspirin prescribed/recommended by a physician? No Anesthesia: Anesthesia method: local infiltration Local anesthetic: lidocaine 1% WITH epi and sodium bicarbonate Procedure Details: Timeout: pre-procedure verification complete Procedure Prep: patient was prepped and draped in usual sterile fashion Prep type: chlorhexidine Biopsy accession number: [id number] Biopsy lab: [facility] Date of biopsy: 02/12/2025 Frozen section biopsy performed: No Specimen debulked: No Pre-Op diagnosis: squamous cell carcinoma SCC subtype: well differentiated MohsAIQ Surgical site (if tumor spans multiple areas, please select predominant area): lower limb (including hip) Surgery side: left Surgical site (from skin exam): Left Lower Leg - Anterior Indications for Mohs surgery: anatomic location where tissue conservation is critical and ill-defined borders Previously treated? No Mohs Appropriate Use Criteria Score: 8 Details of micrographic surgery: Mohs accession number: [id number] Micrographic Surgery Details: Number of Mohs stages: 1 Post surgery depth of defect: dermis Stage 1 Comments: The area was prepped with Hibiclens, draped in a sterile fashion, and infiltrated with local anesthetic. Sterile technique was used throughout the procedure. The marked area of clinical tumor with a small rim of clinically normal surrounding skin was removed using Mohs technique with beveled edges. Hash arteaga were placed for orientation of the specimen. Hemostasis was achieved with electrodessication. After hemostasis, the defect was measured and recorded, a temporary sterile dressingwas placed over the wound, and the patient was escorted to the waiting area. The specimen was oriented, mapped, and if necessary, divided into sections. A Mohs map was prepared. The specimen was placed in a labeled michaelle dish and was taken to the Mohs lab where it was chromacoded and processed. Mohs sections were prepared with serial tissue sections, stained, and evaluated by Dr. Mosher for interpretation of deep and peripheral margins. The Mohs map was marked accordingly. Amount of lidocaine used: 1.5 c cm Estimated blood loss: <1.0 cc Defect size: 1.3 x 1.0 cm Number of blocks per stage: 1 Number of positive blocks: 0 Tumor free margins were obtained and the Mohs procedure was consideredcomplete. Tumor features identified on Mohs section: no tumor identified Patient tolerance of procedure: tolerated well, no immediate complications Reconstruction: Was the defect reconstructed?: No Mohs Post Operative Type of repair: None. Wound to heal by secondary intention. Wound Care: A dressing was placed on the surgical wound. Post-operative instructions were given in writing and were reviewed with the patient. A follow- up appointment was made, and instructions were given to follow-up sooner if necessary. Patient previously prescribed Mupirocin ointment at last Mohs surgery visit. Next visit: 04/29/2025 documented in this encounter Plan of Treatment DateTypeDepartmentCare Team (Latest Contact Info)Catgaenlkpj18/05/2026 8:35 AM EDTOffice Visit [facility] [address] [place] [address] Nadine Gonzalez MD [address] [place] [address] documented as of this encounter Procedures Procedure NamePriorityDate/TimeAssociated DiagnosisCommentsMOHS SURGERYRoutine 04/29/2025 2:22 PM EST Squamous cell carcinoma of skin of left lower limb, including hip documented in this encounter Results * Mohs surgery (04/29/2025 2:22 PM EST) Narrative Janae Johnson MA - 04/29/2025 2:22 PM EST Consent obtained: written Wesley Protocol: Procedure explained and questions answered to patient or proxy's satisfaction: Yes ?? Test results available and properly labeled: Yes ?? Pathology report reviewed: Yes ?? External notes reviewed: Yes ?? Photo or diagram used for site identification: Yes ?? Site/side marked: Yes ?? Slide independently reviewed by Mohs surgeon: Yes ?? Anticoagulation: Is the patient taking prescription anticoagulant and/or aspirin prescribed/recommended by a physician? No ?? Anesthesia: Anesthesia method: local infiltration Local anesthetic: lidocaine 1% WITH epi and sodium bicarbonate Procedure Details: Timeout: pre-procedure verification complete Procedure Prep: patient was prepped and draped in usual sterile fashion Prep type: chlorhexidine Biopsy accession number: [id number] Biopsy lab: [facility] Date of biopsy: 02/12/2025 Frozen section biopsy performed: No ?? Specimen debulked: No ?? Pre-Op diagnosis: squamous cell carcinoma SCC subtype: well differentiated MohsAIQ Surgical site (if tumor spans multiple areas, please select predominant area): lower limb (including hip) Surgery side: left Surgical site (from skin exam): Left Lower Leg - Anterior Indications for Mohs surgery: anatomic location where tissue conservation is critical and ill-defined borders Previously treated? No ?? Mohs Appropriate Use Criteria Score: 8 Details of micrographic surgery: [facility] accession number: [id number] Micrographic Surgery Details: Number of Mohs stages: 1 Post surgery depth of defect: dermis Stage 1 ?? Comments: The area was prepped with Hibiclens, draped in a sterile fashion, and infiltrated with local anesthetic. Sterile technique was used throughout the procedure. The marked area of clinical tumor with a small rim of clinically normal surrounding skin was removed using Mohs technique with beveled edges. Hash arteaga were placed for orientation of the specimen. Hemostasis was achieved with electrodessication. After hemostasis, the defect was measured and recorded, a temporary sterile dressing was placed over the wound, and the patient was escorted to the waiting area. The specimen was oriented, mapped, and if necessary, divided into sections. A Mohs map was prepared. The specimen was placed in a labeled michaelle dish and was taken to the Mohs lab where it was chromacoded and processed. Mohs sections were prepared with serial tissue sections, stained, and evaluated by Dr. Mosher for interpretation of deep and peripheral margins. The Mohs map was marked accordingly. Amount of lidocaine used: 1.5 c cm Estimated blood loss: <1.0 cc Defect size: 1.3 x 1.0 cm Number of blocks per stage: 1 Number of positive blocks: 0 Tumor free margins were obtained and the Mohs procedure was considered complete. ?? Tumor features identified on Mohs section: no tumor identified Patient tolerance of procedure: tolerated well, no immediate complications Reconstruction: Was the defect reconstructed?: No ?? Authorizing ProviderResult TypeResult StatusCoparas Mosher MDDERM PROCEDURE ORDERABLESFinal Result documented in this encounter Visit Diagnoses Diagnosis Squamous cell carcinoma of skin of left lower limb, including hip documented in this encounter Care Teams Team MemberRelationshipSpecialtyStart DateEnd Date Juno Bowden MD [address] [place] [phone] PCP - General09/22/24documented as of this encounter
--- OUTSIDE RECORDS SUMMARY | 2025-05-12 11:43 | XMS_ITS | Encounter Summary ---
Author Organization [facility] Address [address] [facility] [place] [address] Care Team Providers Care System Planning Engineer Name Role Phone Juno Bowden MD Primary Care Provider [phone] Encounter Details DateTypeDepartmentCare Team (Latest Contact Info)Mmndnmbytpu30/09/2025amboo flowsheet [facility] [address] [place] [address] Asha Mosher MD [address] [place], [place] [id number] Social History Tobacco UseTypesPacks/DayYears UsedDateSmoking Tobacco: NeverSmokeless Tobacco: NeverCommentsUnknownSex and Gender InformationValueDate RecordedSex Assigned at IigbbKklonu24/26/2023 8:35 AM EDTLegal GznRadpgl51/15/2023 7:17 PM EDTGender XqquguajXyzxdj07/26/2023 8:35 AM EDTSexual OrientationNot on file documented as of this encounter Plan of Treatment DateTypeDepartmentCare Team (Latest Contact Info)Dvszsfkynvq53/05/2026 8:35 AM EDTOffice Visit [facility] [address] [place] [address] Nadine Gonzalez MD [address] [place] [address] documented as of this encounter Visit Diagnoses Not on filedocumented in this encounter Care Teams Team MemberRelationshipSpecialtyStart DateEnd Date Juno Bowden MD [address] [place] [phone] PCP - General09/22/24documented as of this encounter
--- OUTSIDE RECORDS SUMMARY | 2025-05-12 11:44 | XMS_ITS | Patient Health Record ---
Author Organization [facility] [place] Address [address] [place] [address] Care Team Providers Care Chemical Dependency Counselor Name Role Phone Ilia Bowden Primary Care Provider Allergies No Known Allergies Results Component Value Reference Range Notes CBC AUTO DIFF Reviewed date:06/05/2024 07:17:53 PM Interpretation: Performing Lab: Notes/Report: [facility] , White Blood Count 5.9 4.0-11.0 10 3/uL Red Blood Count4.634.20-5.40 10 6/cXTskrirasho39.312.0-16.0 g/wMHfcgguhhye51.7 36.0-48.0 %Mean Corpuscular Lpytib98.181.0-99.0 fLMean Corpuscular Hemoglobin 28.726.7-34.0 pgMean Corpuscular HGB Conc31.929.9-35.2 g/dLRed Cell Distribution Width13.211.0-15.0 %Platelet Kjczp794117-883 10 3/uLMean Platelet Volume8.79.5- 13.5 fLNeutrophils Percent Auto49.643.0-75.0 %Lymphocytes Percent Auto38.020.5- 60.0 %Monocytes Percent Auto8.61.7-12.0 %Eosinophils Percent Auto2.50.9-7.0 % Basophils Percent Auto0.80.2-2.0 %Immature Granulocytes Pct Auto0.50.0-0.5 % Neutrophils Absolute Auto2.91.4-6.5 10 3/uLLymphocytes Absolute Auto2.31.2-3.8 10 3/uLMonocytes Absolute Auto0.50.3-0.8 10 3/uLEosinophils Absolute Auto0.20.0- 0.7 10 3/uLBasophils Absolute Auto0.10.0-0.1 10 3/uLImmature Granulocytes Abs Auto0.030.00-0.03 10 3/uLPerforming Lab:see note - [facility] LB GLYCOHEMOGLOBIN A1C Reviewed date:06/05/2024 07:17:53 PM Interpretation: Performing Lab: Notes/Report: [facility] ,Glycohemoglobin A1C5.94.5-6.2 % ADA THERAPEUTIC TARGET < 7.0 ADA RECOMMENDED LIMIT 4.0 - 6.0 > 7.0 ACTION SUGGESTED Estimated Average Nmtqxiv088Kdgghsnzgn Lab:[facility] INSULIN Reviewed date:06/06/2024 12:46:47 PM Interpretation: Performing Lab: Notes/Report: [facility] ,Insulin6.42.6-24.9 uIU/mL [address], [place] [id number] Performed at: [facility] Child Welfare Worker: Mario Peralta PhD, Phone: [phone] Performing Lab:see [facility]imyOTHELL[facility] LabAultman Orrville HospitalMM tomosynthesis screening BI Reviewed date:02/06/2025 06:33:23 PM Interpretation: Performing Lab: Notes/Report: Source Facility: [facility]-[address] [place] [address] Mammography Report Signed Patient: JOSE R YANG MR#: [id number] : 1965 Acct:[id number] Age/Sex: 60 / F ADM Date: 02/06/25 Loc: MAMMO Attending Dr: Yonathan Zendejas M.D. Ordering Physician: Yonathan Zendejas M.D. Results: Date of Service: 02/06/25 Follow Up: Procedure(s): MM tomosynthesis screening BI Accession Number(s): [id number] cc: Juno Bowden M.D.; Yonathan Zendejas M.D. Patient Name: JOSE R YANG MR#: [id number] : 1965 Exam Date: 02/06/2025 Ordering Doctor: DR. MAGUE RODRÍGUEZ M.D. RADIOLOGY REPORT PROCEDURE: MM TOMOSYNTHESIS SCREENING BI COMPARISON: MM TOMOSYNTHESIS SCREENING BI, 02/05/2024. MM TOMOSYNTHESIS SCREENING BI, 01/31/2023. MG MAMM SCREEN 3D MAXIME CAD, 01/31/2022. MG MAMM MAXIME SCRN W CAD DIG, 07/17/2013. INDICATIONS: Screening Calculator Name NCI Breast Cancer Risk Assessment Tool 5 Year Breast Cancer Risk 1.60% Lifetime Breast Cancer Risk 7.90% Personal Breast Cancer No Personal Ovarian Cancer No Treatments None Family Cancers None LOCATION: [facility] BREAST COMPOSITION: The breasts are heterogeneously dense, which may obscure small masses. RIGHT BREAST: No significant suspicious finding. LEFT BREAST: No significant suspicious finding. FINDINGS: DIAGNOSTIC CATEGORY 1--NEGATIVE. RECOMMENDATIONS: ROUTINE MAMMOGRAM AND CLINICAL EVALUATION IN 12 MONTHS. Dictated by: Amadou Bradley MD on 02/06/2025 at 12:45 Approved by: Amadou Bradley MD on 02/06/2025 at 12:47 Dictated By: Amadou Bradley M.D. Signed By: 02/06/25 1248 DD/ 1247 TD/TT: Marketing Consultant:TSH Reviewed date:06/05/2024 07:17:53 PM Interpretation: Performing Lab: Notes/Report: [facility] ,Thyroid Stimulating Hormone0.8420.358-3.740 uIU/mLPerforming Lab:see noteML - [facility] LBT4 Reviewed date:06/05/2024 07:17:53 PM Interpretation: Performing Lab: Notes/Report: [facility] ,T4 Thyroxine8.704.80-13.90 ug/dLPerforming Lab:see noteML - [facility] LBPROF 14(COMP METB) Reviewed date:06/05/2024 07:17:53 PM Interpretation: Performing Lab: Notes/Report: [facility] ,Qokfzc037634-798 mmol/LPotassium3.83.5-5.1 mmol/UTufvohvk08543-264 mmol/LCarbon Deoaaqe71.121.0-32.0 mmol/LAnion Gap10.5Ykkwqwk4072-259 mg/dLBlood Urea Nitrogen 13.07.0-18.0 mg/dLCreatinine0.810.55-1.02 mg/dLEstimated GFR ( Alana>60 >=60 mL/min/1.73m 2Estimated GFR (Non- Ewelina>60>=60 mL/min/1.73m 2BUN Creatinine Ratio16.5Kbplbuv4.78.5-10.1 mg/dLBilirubin Total0.50.2-1.0 mg/dL Aspartate Amino Ktzhvpyspst4518-51 U/LAlanine Gjwnjsaqpbhiqanj1219-50 U/L Alkaline Badwahqyfno0651-661 U/LTotal Protein7.06.4-8.2 g/dLAlbumin Level3.73.4- 5.0 g/dLGlobulin3.3Albumin Globulin Ratio1.1Performing Lab:see noteML - [facility] LBLIPID PROFILE Reviewed date:06/05/2024 07:17:53 PM Interpretation: Performing Lab: Notes/Report: [facility] ,Solrgdxqrashf289<=150 mg/qSIdwmxqcokuw585<=200 mg/dLHDL Htnuwgbthth1392-91 mg/dL <40 mg/dl - HIGH CARDIOVASCULAR RISK > or =60 mg/dl - LOW CARDIOVASCULAR RISK LDL Cholesterol Komhvrbirt124.0 160-189 mg/dl HIGH 130-159 mg/dl BORDERLINE HIGH 100-129 mg/dl NEAR OR ABOVE OPTIMAL >190 mg/dl VERY HIGH <100 mg/dl OPTIMAL VLDL BFXXRDVWXDX89.0Chol HDL Ratio3.6 7.1 - 11.0 MODERATE RISK 3.3 - 4.4 LOW RISK 4.4 - 7.1 AVERAGE RISK >11.0 HIGH RISK Performing Lab:see note - [facility] LBFREE T3 Reviewed date:06/05/2024 07:17:53 PM Interpretation: Performing Lab: Notes/Report: [facility] Free T32.892.18-3.98 pg/mLPerforming Lab:see noteML - [facility] LB Reason For Referral Reason screenign - + FH Diagnosis 1 Well adult (Z00.00) Referral Organization [facility] Referring Provider First Name Ilia Referring Provider Last Name Dennise Referring Provider Speciality Family Med teresa Referred Provider Jose Elias Lainez Referred Provider Specialty General Surg negra Referral Priority Routine Medications Medication SIG (Take, Route, Frequency, Duration) Notes Start Date End Date Status Lisinopril 20 MG 1 tablet Orally Once a day; Dur ation: 90 days 5ActiveMeloxicam 15 MG1 tablet Orally Once a day; Duration: 30 days 5Active Social History Tobacco Use: Social History Observation Description Date Details (start date - stop date) Never Smoker NA - NA Tobacco Control (Standard) Question Answer Notes Tobacco use: Nonsmoker AUDIT-C (Standard) Question Answer Notes Did you have a drink containing alcohol in the p ast year? Yes How often did you have six or more drinks on one occasion in the past year?Never (0 point)How many drinks did you have on a typical day when you were drinking in the past year?1 or 2 drinks (0 point)How often did you have a drink containing alcohol in the past year?Monthly or less (1 point)Lvxuxw1ZzukuxlwewnwuoAjqzxkmo Problems Problem Type SNOMED Code ICD Code Onset Dates Problem Status W/U Status Risk Notes Problem Hyperlipidemia (13638193) Hyperlipidemia (E78.5) ActiveconfirmedProblemHypertension (36311614)Hypertension (I10)Activeconfirmed ProblemOsteoarthritis of knee (676945972)Knee osteoarthritis (M17.9)Active confirmedProblemIrritable bowel syndrome (79171735)IBS (irritable bowel syndrome) (K58.9)ActiveconfirmedProblemWell adult (084047417)Well adult (Z00.00) ActiveconfirmedProblemContact dermatitis (07184727)Contact dermatitis (L25.9) Activeconfirmed Vital Signs Blood pressure diastolic 90 mm Hg 05/12/2025 Qsagmc01 in05/12/2025lood pressure txsuxyzw200 mm Hg05/12/20259693Yiyqys856.8 lbs 05/12/2025BMI29.5 kg/m205/12/2025 Procedures Procedure Date Ordered Date Performed Result Body Sit e EAR IRRIGATION - performed 06/05/2024 N/A Encounters Encounter Location Date Provider Diagnosis [facility] [address] [place] [address] 12/30/2024 Ilia Hoy Contact dermatitis L 25.9 [facility] [address] [facility] [place] [address] 05/12/2025 Ilia Hoy Knee osteoarthritis M17.9 [facility] [address] [facility] [place] [address] 06/05/2024 Ilia Hoy Well adult Z00.00 ; Cerumen impaction H61.20 and Bilateral impacted cerumen H61.23 [facility] [address] [facility] [place] [address] 06/05/2024 Ilia Hoy Hyperlipidemia E78.5 and Encounter for long-term current use of medication Z79.899 [facility] [address] [facility] [place] [address] 06/17/2024 Ilia Hoy [facility] [facility] [place] [address] 06/26/2024[facility] [facility] [place] [address]/03/2025[facility] [facility] [place] [address]/05/2024[facility] [facility] [place] [address]/[facility] [place] [address]/[facility] [facility] [place] [address]/09/2024 Ilia HoyHypertension E79Tlpiavb[facility] [place] [address]/03/2025Doug HoyHypertension I10 Assessments Encounter Date Diagnosis (ICD Code) Assessment Notes Treatment Notes Treatment Clinical Notes Section Notes 06/26/2024 Hypertension (ICD-10 - I10) 07/02/2024Hypertension (ICD-10 - I10)12/30/2024ontact dermatitis (ICD-10 - L25.9)05/12/2025Knee osteoarthritis (ICD-10 - M17.9)06/05/2024Hyperlipidemia (ICD-10 - E78.5)06/05/2024Encounter for long-term current use of medication (ICD-10 - Z79.899)06/05/2024Well adult (ICD-10 - Z00.00)06/05/2024erumen impaction (ICD-10 - H61.20)06/05/2024ilateral impacted cerumen (ICD-10 - H61.23) Plan Of Treatment Pending Test Test Name Order Date HEMOGLOBIN A1C (GLYCO) 06/05/2024 LIPID PANEL (CHOL/TRIG/HDL/LDL) 06/05/19 25 CBC WITH DIFF (EXP 03/2025) 06/05/2024 Insulin Level 06/05/2024 EAR IRRIGATION - performed 06/05/2024 LIPID PROFILE 06/05/2024 LIVER PROFILE 06/05/2024 XR HIP LT 2 3V W PELVIS 05/12/2025 XR KNEE LT 3V 05/12/2025 THYROID PANEL (T4/TSH/FREE T3) CMP (COMP MET ABBOTT) w/eGFR CKD-EPI 2024 Future Test Test Name Order Date LIPID PROFILE 09/04/2024 LIVER PROFILE 09/04/2024 Insurance Providers Payer Name Payer Address Payer Phone Subscriber Number Group Number Insured Name Patient Relationship to Insured Coverage Start Date Coverage End Date MMO [address] [facility], [place] [id number] Virgen Yang - patient is the insured Medications Administered Medication Instructions Date of Administration Dosage Notes Triamcinolone 40 mg/ml 0 mg Medical (General) History Medical History History ICD Code IBS (irritable bowel syndrome) K58.9 Surgical History Surgery Date(Month/Year) Colonscopy EndoscopyGallbladder RemovalHospitalization History Reason Date(Month/Year) See Above
--- OUTSIDE RECORDS SUMMARY | 2025-05-12 11:44 | XMS_ITS | Clinical Summary ---
Author Organization [facility] Address [address] [place] [place] [address] Care Team Providers Care Nurse Practitioner Per Diem Name Role Phone Juno Bowden MD Primary Care Provider [phone] Allergies No known active allergies Medications MedicationSigDispense QuantityRefillsLast FilledStart DateEnd DateStatus lisinopril 20 MG tablet 1 (one) time each day at the same time5Active fluorouracil (Efudex) 5 % cream Indications:Actinic keratosisApply to directed areas on the lower legs twice a day x 14 days. Dispense 30 day supply but only use for 14 days. 40 g 5Active Chlorhexidine Gluconate (Hibiclens) 4 % solution Indications:Prophylactic measureUse once daily in shower, wash from the neck down only, 2 weeks prior to procedure. 30 day supply 473 mL 5Active mupirocin (Bactroban) 2 % ointment Indications:Squamous cell carcinoma of skin of right lower limb, including hip Apply to surgical site on the right lower leg daily x 2-3 weeks or until completely healed 22 g 5106/13/2024Expired Active Problems No known active problems Encounters DateTypeDepartmentCare VjyfOkvutnhiogx90/09/2025 1:00 PM ESTOffice Visit [facility] [address] [place] [address] Asha Mosher MD Squamous cell carcinoma of skin of left lower limb, including hip04/29/2025 Bamboo flowsheet [facility] [address] [place] [address] Asha Mosher MD 04/29/20259444Abmzww28/26/2025 3:45 PM ESTOffice Visit [facility] [address] [place] [address] Asha Mosher MD Encounter for postoperative wound check (Primary Dx)04/16/2025amboo flowsheet [facility] [address] [place] [address] Asha Mosher MD 04/16/20250018Gvpxrh59/14/2025Telephone [facility] [address] [place] [address] Asha Key LPN Courtesy call04/03/2025 1:00 PM ESTOffice Visit [facility] [address] [place] [address] Asha Mosher MD Squamous cell carcinoma of skin of right lower limb, including hip04/03/2025 Bamboo flowsheet [facility] [address] [place] [address] Asha Mosher MD 04/03/20255899Bqgeln88/12/8607Uejlbq42/30/2025Results Follow-Up [facility] [address] [place] [address] Claudia Alfonso, [facility] Dermatopathology exam02/12/2025 10:00 AM EDTOffice Visit [facility] [address] [place] [address] Nadine Gonzalez MD Actinic keratosis (Primary Dx); Neoplasm of unspecified behavior of bone, soft tissue, and skin02/12/2025amboo flowsheet [facility] [address] [place] [address] Nadine Gonzalez MD 02/12/2025Travelfrom Last 3 Months Family History Medical HistoryRelationNameCommentsMelanomaBrotherRelationNameStatusComments Brother Social History Tobacco UseTypesPacks/DayYears UsedDateSmoking Tobacco: NeverSmokeless Tobacco: Never Tobacco Cessation:Counseling Given: Not Answered CommentsUnknownSex and Gender InformationValueDate RecordedSex Assigned at KbddoIjglfy29/26/2023 8:35 AM EDTLegal BjlGlcbkz54/15/2023 7:17 PM EDTGender LviaotrgLmjbge05/26/2023 8:35 AM EDTSexual OrientationNot on file Last Filed Vital Signs Vital SignReadingTime TakenCommentsBlood Whqorfek855/6112/01/2025 2:26 PM EST Pulse--Temperature--Respiratory Rate--Oxygen Saturation--Inhaled Oxygen Concentration--Weight--Zbvrko23.4 cm (10 )03/09/2022 12:00 PM EDTBody Mass Index -- Plan of Treatment DateTypeDepartmentCare Team (Latest Contact Info)Prvslruvoyn16/05/2026 8:35 AM EDTOffice Visit [facility] [address] [place] [address] Nadine Gonzalez MD [address] [place] [address] Health MaintenanceDue DateLast DoneCommentsCT Oykejoeziwlr1965Colonoscopy 1965Colorectal Cancer Hhkuiqsfj1964FIT-DNA1965FIT1965 FOBT1965 1563Zdbplmcufwgyl1964HPV/Xzubry9501/18/19942936Tgkvsznny37/12/2023 01/31/2022, 11/07/2017COVID-19 Vaccine ( season), 08/25/2020, 08/03/2020ervical Cancer Kjeycuzmb33/23/2027Pap Smear09/11/2026 09/12/2023Influenza ZrnqndaQfgusbqvr79/04/2025, 01/31/2024, 03/14/2023, Additional history existsPneumococcal Vaccine: Pediatrics (0 to 5 Years) and At- Risk Patients (6 to 64 Years)Aged OutNo longer eligible based on patient's age to complete this topic Procedures Procedure NamePriorityDate/TimeAssociated DiagnosisCommentsMOHS SURGERYRoutine 04/29/2025 2:22 PM EST Squamous cell carcinoma of skin of left lower limb, including hip MOHS EIJCHJVLpwuico05/13/2025 12:57 PM EST Squamous cell carcinoma of skin of right lower limb, including hip SKIN / NAIL BNSASUQhfracm00/24/2025 10:05 AM EDT Neoplasm of unspecified behavior of bone, soft tissue, and skin SKIN / NAIL TYZKWHAmwbvhq75/24/2025 10:05 AM EDT Neoplasm of unspecified behavior of bone, soft tissue, and skin ZZDERMATOPATHOLOGY EXAM PTFOWFMDUJJAamnvws50/24/2025 12:00 AM EDT Actinic keratosis Neoplasm of unspecified behavior of bone, soft tissue, and skin DERMATOPATHOLOGY KBRLIdouykp35/24/2025 12:00 AM EDT Neoplasm of unspecified behavior of bone, soft tissue, and skin from Last 3 Months Results * Mohs surgery (04/29/2025 2:22 PM EST) Narrative Janae Johnson, NIKA - 04/29/2025 2:22 PM EST Consent obtained: written [place] Protocol: Procedure explained and questions answered to [...] fashion Prep type: chlorhexidine Biopsy accession number: [id number] Biopsy lab: [facility] Date of biopsy: 02/12/2025 Frozen section biopsy [...] No ?? Authorizing ProviderResult TypeResult StatusCoparas Mosher [facility] PROCEDURE ORDERABLESFinal Result * Mohs surgery (04/03/2025 12:57 PM EST) Narrative Asha Key LPN - 04/03/2025 12:57 PM EST Consent obtained: written [place] Protocol: Procedure explained and questions answered to [...] fashion Prep type: chlorhexidine Biopsy accession number: [id number] Biopsy lab: [facility] Date of biopsy: 02/12/2025 Frozen section biopsy performed: No ?? Specimen debulked: No ?? Pre-Op diagnosis: squamous cell carcinoma SCC subtype: well differentiated and KA type MohsAIQ Surgical site (if tumor spans multiple areas, please select predominant area): lower limb (including hip) Surgery side: right Surgical site (from skin exam): Right Lower Leg - Lateral Pre-operative length (cm): 1.2 Pre-operative width (cm): 1 Indications for Mohs surgery: anatomic location where tissue conservation is critical and ill-defined borders Previously treated? No ?? Mohs Appropriate Use Criteria Score: 7 Details of micrographic surgery: Mohs accession number: [id number] Micrographic Surgery Details: Post-operative length (cm): 1.3 Post-operative width (cm): 1.1 Number of Mohs stages: 1 Post surgery [...] was marked accordingly. Amount of lidocaine used: 1.0 cc Estimated blood loss: minimal Defect size: 1.3 x 1.1 cm Number of blocks per stage: 1 Number of positive blocks: 0. Tumor free margins were obtained and the Mohs procedure was considered complete. ?? Tumor features identified on Mohs section: no tumor identified ?? Depth of tumor invasion after stage: dermis Patient tolerance of procedure: tolerated well, no immediate complications Reconstruction: Was the defect reconstructed?: No ?? Antibiotics: Were antibiotics given on the day of surgery?: No ?? Authorizing ProviderResult TypeResult StatusCoparas Mosher [facility] PROCEDURE ORDERABLESFinal Result * Lesion biopsy (02/12/2025 10:05 AM EDT) Narrative Deborah Jeffery MA - 02/12/2025 10:05 AM EDT Type of biopsy: tangential Informed consent: discussed and consent obtained ?? Informed consent comment: ??The risks and benefits of the biopsy were discussed. Risks include but are not limited to bleeding, infection, scarring, pain, and nerve damage. An opportunity to ask questions prior to the procedure was permitted and all questions were answered. Patient was prepped and draped in usual sterile fashion: area cleansed with alcohol. Anesthesia: the lesion was anesthetized in a standard fashion ?? Anesthetic: ??1% lidocaine w/ epinephrine 1-100,000 buffered w/ 8.4% NaHCO3 Instrument used: DermaBlade ?? Hemostasis achieved with: electrodesiccation ?? Outcome: patient tolerated procedure well ?? Outcome comment: ??The specimen was placed in a prelabeled formalin container to be sent for pathology Post-procedure details: sterile dressing applied and wound care instructions given ?? Post-procedure details comment: ??Emphasized need to contact clinic for any signs of infection, uncontrollable bleeding, or complications. Dressing type: bandage ?? Additional details: ??Photo taken Amount of lidocaine used: 1.0 cc Authorizing ProviderResult TypeResult StatusNadine Gonzalez [facility] PROCEDURE ORDERABLESFinal Result * Lesion biopsy (02/12/2025 10:05 AM EDT) Narrative Deborah Jeffery MA - 02/12/2025 10:05 AM EDT Type of biopsy: tangential Informed consent: discussed and consent obtained ?? Informed consent comment: ??The risks and benefits of the biopsy were discussed. Risks include but are not limited to bleeding, infection, scarring, pain, and nerve damage. An opportunity to ask questions prior to the procedure was permitted and all questions were answered. Patient was prepped and draped in usual sterile fashion: area cleansed with alcohol. Anesthesia: the lesion was anesthetized in a standard fashion ?? Anesthetic: ??1% lidocaine w/ epinephrine 1-100,000 buffered w/ 8.4% NaHCO3 Instrument used: DermaBlade ?? Hemostasis achieved with: electrodesiccation ?? Outcome: patient tolerated procedure well ?? Outcome comment: ??The specimen was placed in a prelabeled formalin container to be sent for pathology Post-procedure details: sterile dressing applied and wound care instructions given ?? Post-procedure details comment: ??Emphasized need to contact clinic for any signs of infection, uncontrollable bleeding, or complications. Dressing type: bandage ?? Additional details: ??Photo taken Amount of lidocaine used: 1 cc Authorizing ProviderResult TypeResult StatusEmily A Petitti MDDERM PROCEDURE ORDERABLESFinal Result * Dermatopathology exam (02/12/2025 12:00 AM EDT)ComponentValueRef RangeTest MethodAnalysis TimePerformed AtPathologist SignatureSPECIMEN TYPE SPECIMEN: RIGHT LOWER LEG - LATERAL [facility] ICD10 CodeC44.721AURORA DIAGNOSTICSPROTOCOLF - FLATAURORA DIAGNOSTICSFinal DiagnosisINVASIVE SQUAMOUS CELL CARCINOMA, KERATOACANTHOMA TYPE (SEE COMMENT). COMMENT: The tumor is transected across the base. [facility] DIAGNOSTICSGross TextAURORA DIAGNOSTICSMicroscopic DescriptionMicroscopic examination performed.[facility] DIAGNOSTICSSPECIMEN TYPE SPECIMEN: LEFT LOWER LEG - ANTERIOR [facility] YPOUWYOTDCBOHM57 CodeC44.721AURORA DIAGNOSTICSPROTOCOLF - FLATAURORA DIAGNOSTICSFinal Diagnosis INVASIVE SQUAMOUS CELL CARCINOMA, WELL DIFFERENTIATED (SEE COMMENT). COMMENT: The tumor is transected across the base. [facility] DIAGNOSTICSGross TextAURORA DIAGNOSTICSMicroscopic DescriptionMicroscopic examination performed.[facility]AH [id number]*2AURORA DIAGNOSTICSSpecimen (Source)Anatomical Location / LateralityCollection Method / VolumeCollection TimeReceived TimeSkin (tissue) specimen (specimen)Topography unknown / Unknown 02/12/2025 10:05 AM EDTComment:Differential Diagnosis: SCC Check Margins: Yes Size of lesion: 0.7 x 0.7 cm Diagnosis: (D49.2) Neoplasm of unspecified behavior of bone, soft tissue, and skin Plan: Lesion biopsy Skin (tissue) specimen (specimen)Topography unknown / Uxyatgn9802/12/2025 10:05 AM EDTComment:Differential Diagnosis: SCC Check Margins: No Size of lesion: 1.5 x 1.5 cm Diagnosis: (D49.2) Neoplasm of unspecified behavior of bone, soft tissue, and skin Plan: Lesion biopsy, Lesion biopsy Narrative Authorizing ProviderResult TypeResult StatusEmily Julia RODRIGUEZ PATHOLOGY ORDERABLESFinal ResultPerforming OrganizationAddressCity/State/ZIP CodePhone Number [facility] from Last 3 Months Insurance Care Teams Team MemberRelationshipSpecialtyStart DateEnd Date Juno Bowden MD [address] [place] [address] [facility] - General09/22/24
--- OUTSIDE RECORDS SUMMARY | 2025-05-12 11:44 | XMS_ITS | Encounter Summary ---
Author Organization [facility] Address [address] [facility] [place] [address] Care Team Providers Care Machinery Rep[employer] Maintenance Supervisor Name Role Phone Juno Bowden MD Primary Care Provider [phone] Encounter Details DateTypeDepartmentCare Team (Latest Contact Info)Wxjrvrawqfn27/09/2025Travel Social History Tobacco UseTypesPacks/DayYears UsedDateSmoking Tobacco: NeverSmokeless Tobacco: NeverCommentsUnknownSex and Gender InformationValueDate RecordedSex Assigned at JqgeiLjrfuk56/26/2023 8:35 AM EDTLegal BahVldxqh22/15/2023 7:17 PM EDTGender NyygzyacBtjklp44/26/2023 8:35 AM EDTSexual OrientationNot on file documented as of this encounter Plan of Treatment DateTypeDepartmentCare Team (Latest Contact Info)Fpkvahnvyzv73/05/2026 8:35 AM EDTOffice Visit [facility] [address] [place] [phone] Nadine Gonzalez MD [address] [place] [address] documented as of this encounter Visit Diagnoses Not on filedocumented in this encounter Care Teams Team MemberRelationshipSpecialtyStart DateEnd Date Juno Bowden MD [address] [place] [address] PCP - General09/22/24documented as of this encounter
--- NOTE | 2025-05-12 11:45 | XR_ITS ---
[facility] [place] [id number] Patient Name: JOSE R YANG MRN: [id number] date: 1965 Sex: F Assigned Patient Location: [facility] Current Patient Location: [facility] Accession/Order Number: [id number] Exam Date: 05/12/2025 11:48 Report Date: 05/12/2025 12:27 At the request of: SUMIT PRUITT MD Procedure: XR knee LT 3V CLINICAL DATA: Pain at the left knee for the past month. No injury. LEFT HIP WITH AP PELVIS - 3 views COMPARISON: None available AP view of the pelvis as well as AP and frog-lateral views of the left hip were obtained. No fracture or dislocation is identified. The hip joint spaces are maintained. There is minimal marginal spurring at the superior acetabula. There are enthesophytes at the iliac crests and greater trochanters. There is sclerosis at the SI joints. Mild degenerative change is also seen at the lower imaged lumbar spine.. No soft tissue abnormalities are present. XR/XR knee LT 3V IMPRESSION: MILD DEGENERATIVE CHANGES. NO ACUTE BONY FINDINGS. LEFT KNEE - 3 views COMPARISON: None AP, lateral and internal oblique views were obtained. There is no acute fracture or dislocation. There is no disproportionate joint space narrowing. There is minor marginal spurring, greatest at the posterior patella. No knee effusion or focal soft tissue swelling is seen. IMPRESSION: MINOR DEGENERATIVE CHANGE. Impression dictated by: Eunice Alejandro M.D. 05/12/2025 12:27 PM Dictation Location: [place] [address] Electronically authenticated by: [id number] Y Date: 05/12/2025 12:27
--- NOTE | 2025-05-12 11:45 | XR_ITS ---
[facility] [place] [id number] Patient Name: JOSE R YANG MRN: [id number] date: 1965 Sex: F Assigned Patient Location: [facility] Current Patient Location: [facility] Accession/Order Number: [id number] Exam Date: 05/12/2025 11:48 Report Date: 05/12/2025 12:27 At the request of: SUMIT PRUITT MD Procedure: XR knee LT 3V CLINICAL DATA: Pain at the left knee for the past month. No injury. LEFT HIP WITH AP PELVIS - 3 views COMPARISON: None available AP view of the pelvis as well as AP and frog-lateral views of the left hip were obtained. No fracture or dislocation is identified. The hip joint spaces are maintained. There is minimal marginal spurring at the superior acetabula. There are enthesophytes at the iliac crests and greater trochanters. There is sclerosis at the SI joints. Mild degenerative change is also seen at the lower imaged lumbar spine.. No soft tissue abnormalities are present. XR/XR hip LT 2V w/ pelvis IMPRESSION: MILD DEGENERATIVE CHANGES. NO ACUTE BONY FINDINGS. LEFT KNEE - 3 views COMPARISON: None AP, lateral and internal oblique views were obtained. There is no acute fracture or dislocation. There is no disproportionate joint space narrowing. There is minor marginal spurring, greatest at the posterior patella. No knee effusion or focal soft tissue swelling is seen. IMPRESSION: MINOR DEGENERATIVE CHANGE. Impression dictated by: Eunice Alejandro M.D. 05/12/2025 12:27 PM Dictation Location: [facility] Electronically authenticated by: [id number] Y Date: 05/12/2025 12:27
== END 2025-05-12 11:40 | disposition home or self-care (01) ==
LOC: RAD 11:40
PROVIDERS: PCP Family Medicine; Visit Provider Family Medicine
DX: M17.9 Osteoarthritis of knee, unspecified (principal)
CPT/HCPCS: 73502; 73562